=== PATIENT | male | born 2000 | race Caucasian/White ===

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

== ENCOUNTER 2018-10-02 20:15 | Emergency (ER) | payer SELFPAY, OTHER | END 2018-10-02 22:12 | disposition home or self-care (01) | LOC: FTE 20:15 | DX: J45.901 Unspecified asthma with (acute) exacerbation (principal) | CPT/HCPCS: 99283 ==